=== PATIENT | female | born 1930 | race African-American/Black ===

== ENCOUNTER 2018-01-23 09:22 | Emergency (ER) | payer SELFPAY ==
[2018-01-23 09:31] VITALS: BP 181/74; PULSE 90; TEMP 98.7; BMI 38.9
--- NOTE | 2018-01-23 09:50 | PDOC ---
History of Present Illness - General Chief Complaint: Cold Symptoms Stated Complaint: CONGESTION,COUGHING,BACK PAIN Time Seen by Provider: 01/23/18 09:36 History Source: Patient Exam Limitations: No Limitations - History of Present Illness Initial Comments: 01/23/18 09:50 ` Son but mother in for evaluation of cold symptoms, runny nose, and heavy thick cough with yellow phlegm. Recently arrived from [facility] 2 weeks ago, and has gradually become sicker since. Has young children at home with colds as well. Deny fever, deny purulent drainage from nose, denies chest pain palpitations or dizziness. Timing/Duration: reports: getting worse Severity: reports: moderate Modifying Factors: improves with: coughing Associated Symptoms: reports: cough, nasal congestion. denies: wheezing Past History - Travel Traveled outside of the country in the last 30 days: No Close contact w/someone who was outside of country & ill: No - Past Medical History Allergies/Adverse Reactions: Allergies Allergy/AdvReac Type Severity Reaction Status Date / Time No Known Allergies Allergy Verified 01/23/18 09:31 Home Medications: Ambulatory Orders Acetaminophen [Tylenol] 650 mg PO Q6H #30 capsule 01/23/18 COPD: No Diabetes: Yes HTN: Yes - Immunization History Immunization Up to Date: Yes - Suicide/Smoking/Psychosocial Hx Smoking History: Never smoked Hx Alcohol Use: No Drug/Substance Use Hx: No Substance Use Type: None Review of Systems - Review of Systems Able to Perform ROS?: Yes Is the patient limited Romanian proficient: Yes Constitutional: Yes: Symptoms Reported, See HPI, Loss of Appetite, Malaise. No : Fever HEENTM: Yes: Nose Congestion Respiratory: Yes: Symptoms reported, See HPI, Cough, Productive cough. No: Wheezing Cardiac (ROS): No: Symptoms Reported, Chest Tightness ABD/GI: No: Symptoms Reported : No: Symptoms Reported Musculoskeletal: Yes: See HPI. No: Symptoms Reported Integumentary: Yes: See HPI. No: Symptoms Reported Neurological: Yes: See HPI. No: Symptoms reported, Headache, Numbness, Paresthesia All Other Systems: Reviewed and Negative *Physical Exam - Vital Signs Last Vital Signs Temp Pulse Resp BP Pulse Ox 98.7 F 90 16 181/74 H 97 01/23/18 09:27 01/23/18 09:27 01/23/18 09:27 01/23/18 09:27 01/23/18 09:27 - Physical Exam General Appearance: Yes: Nourished, Appropriately Dressed, Apparent Distress, Mild Distress HEENT: positive: EOMI, GRIFFIN, Normal ENT Inspection, Pharynx Normal, Pharyngeal Erythema, Rhinorrhea (clear). negative: TMs Normal (medical scar tissue bilateral ears, landmarks barely visualized due to the scarring), Tonsillar Exudate, Tonsillar Erythema Neck: positive: Supple. negative: Tender, Lymphadenopathy (R), Lymphadenopathy (L) Respiratory/Chest: positive: Lungs Clear (but coarse breath sounds ), Normal Breath Sounds. negative: Chest Tender Gastrointestinal/Abdominal: positive: Normal Bowel Sounds, Soft. negative: Tender Musculoskeletal: positive: Normal Inspection Extremity: positive: Normal Inspection, Normal Range of Motion Integumentary: positive: Dry, Warm, Pale Neurologic: positive: inspector line II-XII NML intact, Fully Oriented, Alert, Normal Mood/ Affect, Normal Response, Motor Strength 5/5 Moderate Sedation - Procedure Monitoring Vital Signs: Procedure Monitoring Vital Signs Temperature 98.7 F 01/23/18 09:27 Pulse Rate 90 01/23/18 09:27 Respiratory Rate 16 01/23/18 09:27 Blood Pressure 181/74 H 01/23/18 09:27 O2 Sat by Pulse Oximetry (%) 97 01/23/18 09:27 Progress Note - Progress Note Progress Note: Upper respiratory infection, chest x-ray negative for infiltrates. No evidence of bacterial infection therefore we'll treat conservatively and have follow-up with PMD. *DC/Admit/Observation/Transfer Diagnosis at time of Disposition: Upper respiratory infection, viral - Discharge Dispostion Disposition: HOME Condition at time of disposition: Stable Decision to Admit order: No - Prescriptions Prescriptions: Acetaminophen [Tylenol] 650 mg PO Q6H #30 capsule - Referrals - Patient Instructions Printed Discharge Instructions: DI for Viral Upper Respiratory Infection -- Adult Additional Instructions: Rest, drink lots of fluids: Teas, water, soups, Pedialyte Saltwater gargles Steamy showers/seem to face break up mucus Avoid contact with others until fevers and cough resolved Lots of handwashing and good hygiene Continue [id number] medications for symptomatic relief Tylenol or Motrin for fever and pain Followup with private physician in one to 2 days as needed Return to emergency department for worsened symptoms, fevers, dehydration - Post Discharge Activity
== END 2018-01-23 10:22 | disposition home or self-care (01) ==
LOC: JERFT 09:22
DX: J06.9 Acute upper respiratory infection, unspecified (principal)
CPT/HCPCS: 71046-TC-FY; 99281-25

== ENCOUNTER 2018-06-15 21:13 | Observation (INO) | payer MEDICARE ==
--- NOTE | 2018-06-15 21:14 | PDOC ---
Rapid Medical Evaluation Time Seen by Provider: 06/15/18 21:14 Medical Evaluation: Allergies Allergy/AdvReac Type Severity Reaction Status Date / Time No Known Allergies Allergy Verified 01/23/18 09:31 06/15/18 21:15 I performed a brief in-person evaluation of this patient. Chief complaint: Chest pain, intermittent x 3 days, with left arm cramping. Insomnia. Hx HTN and NIDDM. Pertinent physical exam findings: RRR, S1/S2, no murmurs. Lungs CTAB. I have ordered the following: EKG, CXR, cardiac labs Patient will proceed to the ED for further evaluation. Discharge Disposition - Diagnosis Chest pain - Referrals - Patient Instructions - Post Discharge Activity
[2018-06-15 21:23] VITALS: BMI 37.0
[2018-06-15] MEDS ORDERED: SODIUM CHLORIDE 0.9% 500 ML INFUS.BAG IV ONE (21:39)
--- NOTE | 2018-06-15 21:53 | PDOC ---
History of Present Illness - General Chief Complaint: Chest Pain Stated Complaint: CHEST PAIN Time Seen by Provider: 06/15/18 21:14 - History of Present Illness Initial Comments: 06/15/18 21:51 88 yo F with h/o HTN, DM, who p/w chest pain. Patient from [facility], not Mexican speaking. Per patient son at bedside he reports mother complaining of retrosternal discomfort, exertional, non pleuritic, chest pain for two days, present at rest. Pain radiates to left arm. Denies h/o similiar symptoms. No identifiable alleviators. Also endorses SOB while supine and talking yesterday. Denies recent travel, or chest trauma. Patient denies COSME, vision change, palpitations, cough, wheezing, orthopena, PND , leg swelling/pain, N/V, F,C, urinary complaints, hematuria, BPR, abdominal pain, diarrhea, constipation, lightheadedness, weakness, sensory changes. PMHx: as noted above. Denies h/o ACS/AL, stent placement, CABG, stress testing. Denies h/o PE/DVT. ROS: as noted SHx: Denies Etoh, IVDA, tobacco use. Allergies: NKDA Past History - Past Medical History Allergies/Adverse Reactions: Allergies Allergy/AdvReac Type Severity Reaction Status Date / Time No Known Allergies Allergy Verified 01/23/18 09:31 Home Medications: Ambulatory Orders Acetaminophen [Tylenol] 650 mg PO Q6H #30 capsule 01/23/18 COPD: No Diabetes: Yes HTN: Yes - Immunization History Immunization Up to Date: Yes - Suicide/Smoking/Psychosocial Hx Smoking History: Unknown if ever smoked Hx Alcohol Use: No Drug/Substance Use Hx: No Substance Use Type: None Review of Systems - Review of Systems Comments:: 06/15/18 21:51 GENERAL/CONSTITUTIONAL: No fever or chills. No weakness. HEAD, EYES, EARS, NOSE AND THROAT: No change in vision. No ear pain or discharge. No sore throat. CARDIOVASCULAR: + chest pain and shortness of breath RESPIRATORY: No cough, wheezing, or hemoptysis. GASTROINTESTINAL: No nausea, vomiting, diarrhea or constipation. GENITOURINARY: No dysuria, frequency, or change in urination. MUSCULOSKELETAL: No joint or muscle swelling or pain. No neck or back pain. SKIN: No rash NEUROLOGIC: No headache, vertigo, loss of consciousness, or change in strength/ sensation. ENDOCRINE: No increased thirst. No abnormal weight change HEMATOLOGIC/LYMPHATIC: No anemia, easy bleeding, or history of blood clots. ALLERGIC/IMMUNOLOGIC: No hives or skin allergy. *Physical Exam - Vital Signs Last Vital Signs Temp Pulse Resp BP Pulse Ox 98.2 F 94 H 20 127/85 96 06/15/18 21:16 06/15/18 21:16 06/15/18 21:16 06/15/18 21:16 06/15/18 21:16 - Physical Exam Comments: 06/15/18 21:51 GENERAL: Awake, alert, and fully oriented, in no acute distress HEAD: No signs of trauma, normocephalic, atraumatic EYES: PERRLA, EOMI, sclera anicteric, conjunctiva clear ENT: Hearing grossly normal, nares patent, oropharynx clear without exudates. Moist mucosa NECK: Normal ROM, supple, no lymphadenopathy, JVD, or masses LUNGS: No distress, speaks full sentences, clear to auscultation bilaterally HEART: Regular rate and rhythm, normal S1 and S2, no murmurs, rubs or gallops, peripheral pulses normal and equal bilaterally. ABDOMEN: Soft, nontender, normoactive bowel sounds. No guarding, no rebound. No masses EXTREMITIES : Normal inspection, Normal range of motion, no edema. No clubbing or cyanosis. NEUROLOGICAL: Cranial nerves II through XII grossly intact. Normal speech, normal gait, no focal sensorimotor deficits SKIN: Warm, Dry, normal turgor, no rashes or lesions noted Heart Score/ECG Review - History History: Moderately suspicious - Electrocardiogram EKG: Non specific repolarization disturbance - Age Age: >/= 65 - Risk Factors Risk Factors Heart Score: Yes Hx Hypercholesterolemia, Yes Hx Hypertension, Yes Hx Diabetes, Yes Positive family hx of cardiac disease, Yes Hx Obesity Based on the list above the patient has:: >/=3 risk factors or Hx atherosclerotic disease - Troponin Troponin: </= normal limit - Score Heart Score - Total: 6 ED Treatment Course - LABORATORY CBC & Chemistry Diagram: 06/15/18 21:53 06/15/18 21:53 Medical Decision Making - Medical Decision Making 06/15/18 21:52 88 yo F with h/o HTN, DM, who p/w retrosternal discomfort, exertional chest pain for two days, present at rest, and 1 day SOB. Vitals wnl, AF, A&O. Physical exam unremarkable . ACS/AL r/o. R/o PNA. R/o PNA. Will consider pericaridal effusion, pleural effusion. No evidence fluid overload. Low suspicion CHF, asthma, COPD. ED Course: ASA, 500 NS 06/15/18 22:27 EKG: NSR with RBBB, absent FATUMA, STD. Nml interval druation and axis. Q waves I, AvL. Poor R wave progression. 06/15/18 22:56 CBC,CMP: Unremarkable Trop: Neg Admit tele/obs elevated heart score, chest pain with exertion, EKG changes. Heart score 6 06/15/18 23:[address] Leon Admit to tele Dr. Romero *DC/Admit/Observation/Transfer Diagnosis at time of Disposition: Chest pain Qualifiers: Chest pain type: other chest pain Qualified Code(s): R07.89 - Other chest pain - Discharge Dispostion Decision to Admit order: Yes - Referrals - Patient Instructions Printed Discharge Instructions: DI for Atypical Chest Pain - Post Discharge Activity
[2018-06-15 22:04] LABS: BASO % 0.6 % (0-2.0); HEMOGLOBIN 12.9 GM/dL (10.7-15.3); LYMPH % 45.8 % (8-40); MCHC 32.3 g/dl (32.0-36.0); MEAN CELL VOLUME 83.7 fl (80-96); MEAN PLT VOLUME 7.7 fl (7.5-11.1); MONO % 12.4 % (3.8-10.2); NEUT % 39.2 % (42.8-82.8); PLATELET COUNT 257 K/MM3 (134-434); RBC 4.78 M/mm3 (3.60-5.2); RDW 13.9 % (11.6-15.6)
[2018-06-15 22:19] LABS: INR 0.95 (0.83-1.09); PROTHROMBIN TIME (PATIENT) 11.2 SEC (9.7-13.0)
[2018-06-15] MEDS ORDERED: ASPIRIN 81 MG CHEWABLE TABLETS PO ONE (22:32)
[2018-06-15 22:36] LABS: N-TERMINAL BNP < 5.0 pg/ml (5-450)
[2018-06-15 22:41] LABS: ALBUMIN 3.7 g/dl (3.4-5.0); ALK PHOS 96 U/L (45-117); ANION GAP 11 MMOL/L (8-16); BLOOD UREA NITROGEN 17 mg/dL (7-18); CALCIUM 9.2 mg/dL (8.5-10.1); CHLORIDE 98 mmol/L (98-107); CO2 25 mmol/L (21-32); CREATININE 1.3 mg/dL (0.55-1.3); GLUCOSE,RANDOM 237 mg/dL (74-106); POTASSIUM 4.3 mmol/L (3.5-5.1); SGOT/AST 20 U/L (15-37); SGPT/ALT 22 U/L (13-61); SODIUM 134 mmol/L (136-145)
[2018-06-15] MEDS ORDERED: ASPIRIN 81 MG CHEWABLE TABLETS ONE (23:42)
--- NOTE | 2018-06-15 23:47 | HP ---
CHIEF COMPLAINT: New onset fatigue, dyspnea with exertion PCP: None HISTORY OF PRESENT ILLNESS: History obtained with help of son Ranjith Redding at bedside. Patient is an 88 year old female with history of hypertension, diabetes mellitus , presents with complaint of new onset fatigue. Patient endorses dyspnea on exertion which is new to her for past three days, without inciting event. She admits palpitations and occasional chest tightness associated with her dyspnea. Further, she endorses feeling more tired with exertional activities. Admits her symptoms are palliated with rest. At baseline, patient ambulates with a cane approx. one quarter mile limited by hills and cold weather. She denies cardiac history, and has never seen a rda. Patient denies subjective fevers, chills, abdominal pain, nausea, vomiting, diarrhea, dysuria, hematuria, melena, hematochezia. ER course was notable for: (1) EKG normal sinus rhythm with RBBB (2) Trop 0.02 (3) Recent Travel: Recently immigrated [facility] from [facility] PAST MEDICAL HISTORY: hypertension, diabetes mellitus PAST SURGICAL HISTORY: denies Social History: Smoking: denies Alcohol: denies Drugs: denies Ambulates with waker at baseline Family History: Unable to provide Allergies: Patient is unaware of any food, medication allergies. No Known Allergies Allergy (Verified 01/23/18 09:31) HOME MEDICATIONS: Home Medications Medication Instructions Recorded Acetaminophen [Tylenol] 650 mg PO Q6H #30 capsule 01/23/18 REVIEW OF SYSTEMS CONSTITUTIONAL: Admits: fatigue, malaise. Absent: fever, chills, diaphoresis. HEENT: Absent: rhinorrhea, nasal congestion, throat pain, throat swelling, difficulty swallowing, mouth swelling, ear pain, eye pain, visual changes CARDIOVASCULAR: Admits: chest tightness, palpitations. Absent: chest pain, syncope, irregular heart rate, lightheadedness, peripheral edema RESPIRATORY: Admits: dyspnea with exertion. Absent: cough, orthopnea, wheezing, stridor, hemoptysis GASTROINTESTINAL: Absent: abdominal pain, abdominal distension, nausea, vomiting, diarrhea, constipation, melena, hematochezia GENITOURINARY: Absent: dysuria, frequency, urgency, hesitancy, hematuria, flank pain, genital pain MUSCULOSKELETAL: Absent: myalgia, arthralgia, joint swelling, back pain, neck pain SKIN: Absent: rash, itching, pallor HEMATOLOGIC/IMMUNOLOGIC: Absent: easy bleeding, easy bruising, lymphadenopathy, frequent infections ENDOCRINE: Absent: unexplained weight gain, unexplained weight loss, heat intolerance, cold intolerance NEUROLOGIC: Absent: headache, focal weakness or paresthesias, dizziness, unsteady gait, seizure, mental status changes, bladder or bowel incontinence PSYCHIATRIC: Absent: anxiety, depression, suicidal or homicidal ideation, hallucinations. PHYSICAL EXAMINATION Vital Signs - 24 hr 06/15/18 21:16 Temperature 98.2 F Pulse Rate 94 H Respiratory 20 Rate Blood Pressure 127/85 O2 Sat by Pulse 96 Oximetry (%) GENERAL: The patient is awake, alert, and fully oriented, in no acute distress. HEAD: Normocephalic, atraumatic. EYES: PERRL, extraocular movements intact, sclera anicteric, conjunctiva clear. ENT: Oropharynx clear, without erythema or exudates. Moist mucous membranes. NECK: Trachea midline, full range of motion. Supple without lymphadenopathy. LUNGS: Breath sounds equal, clear to auscultation bilaterally, no wheezes, no crackles. No accessory muscle use. HEART: Regular rate and rhythm, S1, S2 without murmur, rub or gallop. ABDOMEN: Soft, nondistended, nontender to light and deep palpation x4 quadrants , no rebound tenderness, no guarding. Normoactive bowel sounds x4 quadrants. no hepatosplenomegaly, no masses. EXTREMITIES: 2+ radial, dorsalis pedis pulses bilaterally. Warm, well-perfused. No lower extremity edema bilaterally. NEUROLOGICAL: Cranial nerves II through XII grossly intact. Normal speech. No gross focal deficits. PSYCH: Normal mood, normal affect upon my encounter. SKIN: Warm, dry. Laboratory Results - last 24 hr 06/15/18 06/15/18 06/15/18 21:53 21:53 21:53 WBC 7.0 RBC 4.78 Hgb 12.9 Hct 40.0 MCV 83.7 MCH 27.0 MCHC 32.3 RDW 13.9 Plt Count 257 MPV 7.7 Absolute Neuts (auto) 2.7 Neutrophils % 39.2 L Lymphocytes % 45.8 H Monocytes % 12.4 H Eosinophils % 2.0 Basophils % 0.6 Nucleated RBC % 0 PT with INR 11.20 INR 0.95 Sodium 134 L Potassium 4.3 Chloride 98 Carbon Dioxide 25 Anion Gap 11 BUN 17 Creatinine 1.3 Creat Clearance w eGFR 38.84 Random Glucose 237 H Calcium 9.2 Total Bilirubin 1.0 AST 20 ALT 22 Alkaline Phosphatase 96 Creatine Kinase Troponin I B-Natriuretic Peptide Total Protein 8.0 Albumin 3.7 06/15/18 21:53 WBC RBC Hgb Hct MCV MCH MCHC RDW Plt Count MPV Absolute Neuts (auto) Neutrophils % Lymphocytes % Monocytes % Eosinophils % Basophils % Nucleated RBC % PT with INR INR Sodium Potassium Chloride Carbon Dioxide Anion Gap BUN Creatinine Creat Clearance w eGFR Random Glucose Calcium Total Bilirubin AST ALT Alkaline Phosphatase Creatine Kinase 126 Troponin I < 0.02 B-Natriuretic Peptide < 5.0 L Total Protein Albumin ASSESSMENT/PLAN: Patient is an 88 year old female with history of hypertension, diabetes mellitus , presents with complaint of chest pain Chest tightness with palpitations, fatigue -Unclear etiology. Patient denies cardiac history, however EKG shows RBBB. Will rule out acute cardiac syndrome -Chest radiograph shows no acute infiltrates upon my reading -Troponin 0.02. Will follow -Follow cardiac ECHO -Follow D- dimer -Follow TSH -Aspirin 81mg PO daily -Telemetry monitoring -Cardiology consult (Dr. Rainey) -Physical therapy evaluation Hypertension -Continue Hydrochlorothiazide 25mg PO daily -Continue Losartan 25mg PO daily -Monitor vital signs closely Diabetes mellitus -Holding home Metformin -Insulin sliding scale ACHS -Fingerstick blood glucose ACHS -Follow HbA1c FEN -No IV fluids indicated. Encourage judicious oral hydration -Follow CMP -Diabetic, sodium controlled diet. Prophylaxis -Heparin 5000u subq TID Disposition -Telemetry observation Visit type - Emergency Visit Emergency Visit: Yes ED Registration Date: 06/15/18 Care time: The patient presented to the Emergency Department on the above date and was hospitalized for further evaluation of their emergent condition. - New Patient This patient is new to me today: Yes Date on this admission: 06/16/18 - Critical Care Critical Care patient: No
--- NOTE | 2018-06-16 00:44 | PN ---
Teaching Attending Note Name of Resident: Hernandez Patel ATTENDING PHYSICIAN STATEMENT I saw and evaluated the patient. I reviewed the resident's note and discussed the case with the resident. I agree with the resident's findings and plan as documented. SUBJECTIVE: Seen and examined; please refer to resident note for further historical information. Briefly, this is a 88 y/o female presenting to the ER with a CC of chest tightness/easy fatigue/palpitations. She is not complaining of alejandra chest pain, persay. No syncope/presyncope. She doesn't have any previous cardiac history and does not see a men's basketball coach. No pulmonary history. She is a nondrinker/nonsmoker. She is on HCTZ/ARB for HTN and MTF for DM. She is hemodynamically stable and afebrile. No frankly concerning ST-T changes on EKG. Initial cardiac enzymes done and negative. She will be placed on observation on the medicine service. 10 sys ROS done and negative aside from HPI PMH, PSH, FH, SH reviewed Home Medications Medication Instructions Recorded Hydrochlorothiazide [Hctz -] 25 mg PO DAILY 06/16/18 Losartan Potassium [Cozaar -] 25 mg PO DAILY 06/16/18 Metformin HCl [Glucophage] 1,000 mg PO BID 06/16/18 OBJECTIVE: VS, labs, imaging reviewed NAD, AAO, resting comfortably in bed NC AT EOMI PERRLA RRR s1/2 no mgr Lungs CTAB, w/ sym exp NT ND +BS CN2-12 wnl, no fnd Normal mood, appropriate behavior ASSESSMENT AND PLAN: Patient presents for fatigubility/palpitations and vague chest discomfort from home; she is stable and has never seen a men's basketball coach 1) Chest discomfort/easy fatigue/palpitations -Placing on telemetry, trending troponins, monitor for further sx -Checking echo, CV consult -Checking TSH, FLP, A1c -Ceramic Saw Tender on risk factor reduction prior to discharge. 2) HTN -Continue HCTZ and ARB; monitor renal function. Titrate dosage if needed 3) DM -Check A1c; hold PO antihyperglycemic and SSI when inpatient 4) Obesity -Ceramic Saw Tender prior to discharge FENA -PO -PRN replete -CV -As tolerated Full Code
[2018-06-16 06:30] LABS: HEMATOCRIT 35.6 % (32.4-45.2); HEMOGLOBIN 11.6 GM/dL (10.7-15.3); MCH 26.7 pg (25.7-33.7); MCHC 32.7 g/dl (32.0-36.0); MEAN CELL VOLUME 81.8 fl (80-96); MEAN PLT VOLUME 7.8 fl (7.5-11.1); PLATELET COUNT 237 K/MM3 (134-434); RBC 4.35 M/mm3 (3.60-5.2); RDW 14.2 % (11.6-15.6); WHITE BLOOD COUNT 5.3 K/mm3 (4.0-10.0)
[2018-06-16] MEDS: INSULIN SLIDING SCALE (NOVOLOG) 1 VIAL SQ SCH ×4 (06:30→21:30)
[2018-06-16] MEDS: HEPARIN NA (PORCINE) 5,000 UNITS/ML 1ML VIAL SQ SCH ×3 (06:30→21:31)
[2018-06-16 07:01] LABS: ALBUMIN 3.1 g/dl (3.4-5.0); ALK PHOS 75 U/L (45-117); ANION GAP 8 MMOL/L (8-16); BLOOD UREA NITROGEN 16 mg/dL (7-18); CALCIUM 8.7 mg/dL (8.5-10.1); CHLORIDE 101 mmol/L (98-107); CO2 27 mmol/L (21-32); CREATININE 0.8 mg/dL (0.55-1.3); GLUCOSE,RANDOM 145 mg/dL (74-106); POTASSIUM 3.5 mmol/L (3.5-5.1); SGOT/AST 14 U/L (15-37); SGPT/ALT 18 U/L (13-61); SODIUM 136 mmol/L (136-145); TOT PROT 6.8 g/dl (6.4-8.2)
[2018-06-16] MEDS: HYDROCHLOROTHIAZIDE 25 MG TABLET (FP) PO SCH (09:41)
[2018-06-16] MEDS: ASPIRIN 81 MG CHEWABLE TABLETS PO SCH (09:41)
[2018-06-16] MEDS: LOSARTAN POTASSIUM 25 MG TABLET PO SCH (09:41)
[2018-06-16] MEDS ORDERED: HYDROCHLOROTHIAZIDE 50 MG TABLET PO SCH (10:00)
--- NOTE | 2018-06-16 12:54 | CON.CARD ---
Consult Consult Specialty:: Cardiology Referred by:: Medicine Reason for Consultation:: chest pain - History of Present Illness Chief Complaint: fatigue, chest pain, dyspnea History of Present Illness: 88F h/o HTN, DM p/w fatigue, dyspnea on exertion. Sully short of breath for 3 days, palps, also chest tightness and fatigue with exertion, better at rest. Currently comfortable, denies complaints. No prior cardiac hx or workup - Alcohol/Substance Use Hx Alcohol Use: No - Smoking History Smoking history: Unknown if ever smoked Home Medications - Allergies Allergies/Adverse Reactions: Allergies Allergy/AdvReac Type Severity Reaction Status Date / Time No Known Allergies Allergy Verified 01/23/18 09:31 - Home Medications Home Medications: Ambulatory Orders Hydrochlorothiazide [Hctz -] 25 mg PO DAILY 06/16/18 Losartan Potassium [Cozaar -] 25 mg PO DAILY 06/16/18 Metformin HCl [Glucophage] 1,000 mg PO BID 06/16/18 Family Disease History - Family Disease History Family History: Unremarkable Review of Systems - Review of Systems Constitutional: reports: No Symptoms Eyes: reports: No Symptoms HENT: reports: No Symptoms Neck: reports: No Symptoms Cardiovascular: reports: No Symptoms Respiratory: reports: No Symptoms Gastrointestinal: reports: No Symptoms Genitourinary: reports: No Symptoms Musculoskeletal: reports: No Symptoms Integumentary: reports: No Symptoms Neurological: reports: No Symptoms Endocrine: reports: No Symptoms Hematology/Lymphatic: reports: No Symptoms Psychiatric: reports: No Symptoms Vital Signs: Vital Signs Temperature 97.7 F 06/16/18 09:00 Pulse Rate 82 06/16/18 09:00 Respiratory Rate 18 06/16/18 09:00 Blood Pressure 126/83 06/16/18 09:00 O2 Sat by Pulse Oximetry (%) 97 06/16/18 09:00 Constitutional: Yes: Well Nourished, No Distress, Calm Eyes: Yes: Conjunctiva Clear, EOM Intact HENT: Yes: Atraumatic, Normocephalic Neck: Yes: Supple, Trachea Midline Respiratory: Yes: Regular, CTA Bilaterally Gastrointestinal: Yes: Normal Bowel Sounds, Soft Cardiovascular: Yes: Regular Rate and Rhythm JVD: No Carotid Bruit: No PMI: Non-Displaced Heart Sounds: Yes: S1, S2 Murmur: No: Systolic Murmur Musculoskeletal: No: Back Pain Extremities: No: Cold Edema: No Peripheral Pulses WNL: Yes Peripheral Pulses: 2+ Left Doralis Pedis, 2+ Right Dorsalis Pedis Integumentary: No: Jaundice Neurological: Yes: Alert, Oriented Psychiatric: No: Agitated - Other Data Labs, Other Data: CBC, BMP 06/16/18 05:30 06/16/18 06:00 INR, PTT INR 0.95 (0.83-1.09) 06/15/18 21:53 Troponin, BNP 06/15/18 06/16/18 21:53 06:00 Troponin I < 0.02 < 0.02 B-Natriuretic Peptide < 5.0 L Troponin, BNP 06/15/18 06/16/18 21:53 06:00 Troponin I < 0.02 < 0.02 B-Natriuretic Peptide < 5.0 L Assessment/Plan EKG: sinus, RBBB, no ischemic changes CXR: atelectasis/scarring R base tele: sinus chest pain, palps, dyspnea, fatigue - trop neg x 2, EKG RBBB with no ischemic changes, BNP neg - unlikely ACS - echo pending - recommend stress test as well given age, risk factors HTN - continue home meds HCTZ, losartan DM - manage per primary
--- NOTE | 2018-06-16 13:23 | HOSP ---
Subjective - Review of Symptoms Subjective: not having any symptoms at this time. been having intermittent CP with SOB on exertion for the past few weeks. has not have cardiac workup in the past. denies CP, SOB, fever, chills, N/V/C?D denies smoking no significant cardiac hx Current Medications Generic Name Dose Route Start Last Admin Trade Name Lexii PRN Reason Stop Dose Admin Aspirin 81 mg 06/16/18 10:00 06/16/18 09:41 Asa - PO 81 mg DAILY PAVEL Administration Heparin Sodium (Porcine) 5,000 unit 06/16/18 06:00 06/16/18 13:05 Heparin - SQ 5,000 unit TID P[facility]EL Administration Hydrochlorothiazide 25 mg 06/16/18 10:00 06/16/18 09:41 Hctz - PO 25 mg DAILY P[facility]EL Administration Insulin Aspart 1 vial 06/16/18 07:00 06/16/18 11:50 Novolog Vial Sliding Scale - SQ Not Given ACHS P[facility]EL Protocol Losartan Potassium 25 mg 06/16/18 10:00 06/16/18 09:41 Cozaar - PO 25 mg DAILY PAVEL Administration Last Vital Signs Temp Pulse Resp BP Pulse Ox 97.7 F 82 18 126/83 97 06/16/18 09:00 06/16/18 09:00 06/16/18 09:00 06/16/18 09:00 06/16/18 09:00 General NAD CV S1 S2 RRR no murmur/rub/gallop Lungs CTA B/L no wheezing/rales/rhonchi CBCD WBC 5.3 K/mm3 (4.0-10.0) 06/16/18 05:30 RBC 4.35 M/mm3 (3.60-5.2) 06/16/18 05:30 Hgb 11.6 GM/dL (10.7-15.3) 06/16/18 05:30 Hct 35.6 % (32.4-45.2) 06/16/18 05:30 MCV 81.8 fl (80-96) 06/16/18 05:30 MCHC 32.7 g/dl (32.0-36.0) 06/16/18 05:30 RDW 14.2 % (11.6-15.6) 06/16/18 05:30 Plt Count 237 K/MM3 (134-434) 06/16/18 05:30 MPV 7.8 fl (7.5-11.1) 06/16/18 05:30 CMP Sodium 136 mmol/L (136-145) 06/16/18 06:00 Potassium 3.5 mmol/L (3.5-5.1) 06/16/18 06:00 Chloride 101 mmol/L (98-107) 06/16/18 06:00 Carbon Dioxide 27 mmol/L (21-32) 06/16/18 06:00 Anion Gap 8 MMOL/L (8-16) 06/16/18 06:00 BUN 16 mg/dL (7-18) 06/16/18 06:00 Creatinine 0.8 mg/dL (0.55-1.3) 06/16/18 06:00 Creat Clearance w eGFR 68.01 (>60) 06/16/18 06:00 Random Glucose 145 mg/dL (74-106) H 06/16/18 06:00 Calcium 8.7 mg/dL (8.5-10.1) 06/16/18 06:00 Total Bilirubin 1.0 mg/dL (0.2-1) 06/16/18 06:00 AST 14 U/L (15-37) L 06/16/18 06:00 ALT 18 U/L (13-61) 06/16/18 06:00 Alkaline Phosphatase 75 U/L (45-117) 06/16/18 06:00 Total Protein 6.8 g/dl (6.4-8.2) 06/16/18 06:00 Albumin 3.1 g/dl (3.4-5.0) L 06/16/18 06:00 CARDIAC ENZYMES Creatine Kinase 126 U/L (26-192) 06/15/18 21:53 Troponin I < 0.02 ng/ml (0.00-0.05) 06/16/18 06:00 A/P 88yo F wtih PMH HTN and DM presenting with CP assoc with SOB and observed for ACS rule out 1. r/o ACS- cardiac enzymes x2. no events on cardiac monitory. would benefit from stress test to be determined by cardio if in vs outpatient. echo pending. cont asa 2. DM- hold oral agents. A1c 8.8. iss and bgm 3. HTN- controlled. cont home medications 4. DVT ppx- hep sq 5. spoke with grandson present at bedside which served as interperter. all questions answered Physical Examination Vital Signs: Vital Signs Temperature 97.7 F 06/16/18 09:00 Pulse Rate 82 06/16/18 09:00 Respiratory Rate 18 06/16/18 09:00 Blood Pressure 126/83 06/16/18 09:00 O2 Sat by Pulse Oximetry (%) 97 06/16/18 09:00 Labs: CBC, BMP 06/16/18 05:30 06/16/18 06:00
--- NOTE | 2018-06-16 14:11 | EKG ---
Test Reason : Blood Pressure : / mmHG Vent. Rate : 089 BPM Atrial Rate : 089 BPM P-R Int : 138 ms QRS Dur : 138 ms QT Int : 406 ms P-R-T Axes : 059 -27 025 degrees QTc Int : 493 ms POOR DATA QUALITY, INTERPRETATION MAY BE ADVERSELY AFFECTED NORMAL SINUS RHYTHM RIGHT BUNDLE BRANCH BLOCK ABNORMAL ECG NO PREVIOUS ECGS AVAILABLE Confirmed by MD GEORGE, LOIDA ([id number]) on 06/16/2018 2:11:25 PM Referred By: Confirmed By:LOIDA VAZQUEZ MD
[2018-06-17] MEDS: HEPARIN NA (PORCINE) 5,000 UNITS/ML 1ML VIAL SQ SCH ×3 (07:08→22:34)
[2018-06-17] MEDS: INSULIN SLIDING SCALE (NOVOLOG) 1 VIAL SQ SCH ×4 (07:08→22:35)
--- NOTE | 2018-06-17 07:19 | PN ---
Physical Exam: SUBJECTIVE: Patient seen and examined. No SOB, no CP, no more palpitations. No leg swelling. Pt feels better this am. OBJECTIVE: Vital Signs Period Temp Pulse Resp BP Sys/Yin Pulse Ox Last 24 Hr 97.7 F-98.9 F 70-99 18-20 111-133/71-85 95-97 Vital Signs Temp 97.7 F 06/17/18 09:06 Pulse 82 06/17/18 09:06 Resp 20 06/17/18 09:06 BP 126/83 06/17/18 09:06 Pulse Ox 95 06/17/18 09:00 Intake & Output 06/16/18 06/17/18 06/17/18 23:59 11:59 23:59 Intake Total 1310 Balance 1310 Weight 96.706 kg Intake: IV 10 s/l 10 Oral 1300 Other: Voiding Method Toilet Toilet # Unmeasured Voids Void 2 1 Weight Measurement Method Standing Scale GENERAL: The patient is awake, alert, and fully oriented, in no acute distress, having breakfast. HEAD: Normal with no signs of trauma. EYES: PERRL, extraocular movements intact, ENT: moist mucous membranes. NECK: supple. LUNGS: Breath sounds equal, clear to auscultation bilaterally, no wheezes, no crackles HEART: Regular rate and rhythm, S1, S2 without murmur, rub or gallop. ABDOMEN: Soft, nontender, nondistended, normoactive bowel sounds, no guarding EXTREMITIES: 2+ pulses, warm, well-perfused, no edema. NEUROLOGICAL: Cranial nerves II through XII grossly intact. Normal speech, gait not observed. PSYCH: Normal mood, normal affect. SKIN: Warm, dry, normal turgor, no rashes or lesions noted Laboratory Results - last 24 hr 06/16/18 06/16/18 06/16/18 06:00 12:13 16:20 Sodium 136 Potassium 3.5 Chloride 101 Carbon Dioxide 27 Anion Gap 8 BUN 16 Creatinine 0.8 Creat Clearance w eGFR 68.01 POC Glucometer 150 Random Glucose 145 H Calcium 8.7 Total Bilirubin 1.0 AST 14 L ALT 18 Alkaline Phosphatase 75 Troponin I < 0.02 Total Protein 6.8 Albumin 3.1 L Influenza A (Rapid) Negative Influenza B (Rapid) Negative 06/16/18 06/16/18 06/17/18 17:00 20:43 06:51 Sodium Potassium Chloride Carbon Dioxide Anion Gap BUN Creatinine Creat Clearance w eGFR POC Glucometer 154 224 169 Random Glucose Calcium Total Bilirubin AST ALT Alkaline Phosphatase Troponin I Total Protein Albumin Influenza A (Rapid) Influenza B (Rapid) Active Medications Generic Name Dose Route Start Last Admin Trade Name Freq PRN Reason Stop Dose Admin Aspirin 81 mg 06/16/18 10:00 06/16/18 09:41 Asa - PO 81 mg DAILY [facility]EL Administration Heparin Sodium (Porcine) 5,000 unit 06/16/18 06:00 06/17/18 07:08 Heparin - SQ 5,000 unit TID [facility] Administration Hydrochlorothiazide 25 mg 06/16/18 10:00 06/16/18 09:41 Hctz - PO 25 mg DAILY [facility]EL Administration Insulin Aspart 1 vial 06/16/18 07:00 06/17/18 07:08 Novolog Vial Sliding Scale - SQ 2 units ACHS P[facility]EL Administration Protocol Losartan Potassium 25 mg 06/16/18 10:00 06/16/18 09:41 Cozaar - PO 25 mg DAILY [facility]EL Administration Ambulatory Orders Hydrochlorothiazide [Hctz -] 25 mg PO DAILY 06/16/18 Losartan Potassium [Cozaar -] 25 mg PO DAILY 06/16/18 Metformin HCl [Glucophage] 1,000 mg PO BID 06/16/18 ASSESSMENT/PLAN: Pt is an 88 yo F with history of HTN, DM, presents with complaint of SOB, palpitations Chest tightness with palpitations, fatigue -Unclear etiology. Patient denies cardiac history, however EKG shows RBBB. Will rule out acute cardiac syndrome -Chest radiograph shows no acute infiltrates upon my reading -Troponin 0.02. x2 -Pending cardiac ECHO -Follow [id number] -Follow TSH-1.28 -Aspirin 81mg PO daily -Telemetry monitoring -Cardiology consult (Dr. Rainey) -Physical therapy evaluation -Pending stress test Hypertension -Continue Hydrochlorothiazide 25mg PO daily -Continue Losartan 25mg PO daily -Monitor vital signs closely Diabetes mellitus -Holding home Metformin -Insulin sliding scale ACHS -Fingerstick blood glucose ACHS -Follow HbA1c FEN -No IV fluids indicated. Encourage judicious oral hydration -Follow CMP -Diabetic, sodium controlled diet. Prophylaxis -Heparin 5000u subq TID Disposition -Telemetry observation Visit type - Emergency Visit Emergency Visit: Yes ED Registration Date: 06/15/18 Care time: The patient presented to the Emergency Department on the above date and was hospitalized for further evaluation of their emergent condition. - New Patient This patient is new to me today: No - Critical Care Critical Care patient: No - Discharge Referral Referred to [facility] No
[2018-06-17] MEDS: ASPIRIN 81 MG CHEWABLE TABLETS PO SCH (09:00)
[2018-06-17] MEDS: LOSARTAN POTASSIUM 25 MG TABLET PO SCH (09:00)
[2018-06-17] MEDS: HYDROCHLOROTHIAZIDE 25 MG TABLET (FP) PO SCH (09:00)
--- NOTE | 2018-06-17 10:55 | PN ---
Teaching Attending Note Name of Resident: Martha More ATTENDING PHYSICIAN STATEMENT I saw and evaluated the patient. I reviewed the resident's note and discussed the case with the resident. I agree with the resident's findings and plan as documented. SUBJECTIVE:asymptomatic. denies CP, SOB, fever, chills, palpitations, OBJECTIVE: Last Vital Signs Temp Pulse Resp BP Pulse Ox 97.7 F 82 20 126/83 95 06/17/18 09:06 06/17/18 09:06 06/17/18 09:06 06/17/18 09:06 06/17/18 09:00 General NAD CV S1 S2 RRR no murmur/rub/gallop Lungs CTA B/L no wheezing/rales/rhonchi ASSESSMENT AND PLAN: 88yo F wtih PMH HTN and DM presenting with CP assoc with SOB and observed for ACS rule out 1. r/o ACS-no recurrent episodes. no events on cardiac monitoring. plan for echo and stress tomorrow. cardio on board. cont asa 2. DM- hold oral agents. A1c 8.8. iss and bgm 3. HTN- controlled. cont home medications 4. DVT ppx- hep sq 5. d/c planning for tomorrow pending results of cardiac testing
--- NOTE | 2018-06-17 11:04 | PN ---
Progress Note (short form) - Note Progress Note: s: no chest pain, palps, dizziness, edema Current Medications Aspirin (Asa -) 81 mg PO DAILY [facility] Last Admin: 06/17/18 09:00 Dose: 81 mg Heparin Sodium (Porcine) (Heparin -) 5,000 unit SQ TID [facility] Last Admin: 06/17/18 07:08 Dose: 5,000 unit Hydrochlorothiazide (Hctz -) 25 mg PO DAILY [facility] Last Admin: 06/17/18 09:00 Dose: 25 mg Insulin Aspart (Novolog Vial Sliding Scale -) 1 vial SQ ACHS [facility]; Protocol Last Admin: 06/17/18 07:08 Dose: 2 units Losartan Potassium (Cozaar -) 25 mg PO DAILY [facility] Last Admin: 06/17/18 09:00 Dose: 25 mg Vital Signs Period Temp Pulse Resp BP Sys/Yin Pulse Ox Last 24 Hr 97.7 F-98.9 F 70-99 20-20 111-133/71-85 95-97 Constitutional: Yes: Well Nourished, No Distress, Calm Eyes: Yes: Conjunctiva Clear, EOM Intact HENT: Yes: Atraumatic, Normocephalic Neck: Yes: Supple, Trachea Midline Respiratory: Yes: Regular, CTA Bilaterally Gastrointestinal: Yes: Normal Bowel Sounds, Soft Cardiovascular: Yes: Regular Rate and Rhythm JVD: No Carotid Bruit: No PMI: Non-Displaced Heart Sounds: Yes: S1, S2 Murmur: No: Systolic Murmur Musculoskeletal: No: Back Pain Extremities: No: Cold Edema: No Peripheral Pulses WNL: Yes Peripheral Pulses: 2+ Left Doralis Pedis, 2+ Right Dorsalis Pedis Integumentary: No: Jaundice Neurological: Yes: Alert, Oriented Psychiatric: No: Agitated Assessment/Plan EKG: sinus, RBBB, no ischemic changes CXR: atelectasis/scarring R base tele: sinus chest pain, palps, dyspnea, fatigue - trop neg x 2, EKG RBBB with no ischemic changes, BNP neg - unlikely ACS - echo pending - recommend stress test as well given age, risk factors HTN - continue home meds HCTZ, losartan DM - manage per primary
[2018-06-18] MEDS: INSULIN SLIDING SCALE (NOVOLOG) 1 VIAL SQ SCH ×3 (06:13→17:04)
[2018-06-18 06:40] LABS: EOS % 2.7 % (0-4.5); HEMATOCRIT 38.6 % (32.4-45.2); HEMOGLOBIN 12.9 GM/dL (10.7-15.3); LYMPH % 52.7 % (8-40); MCH 27.3 pg (25.7-33.7); MCHC 33.4 g/dl (32.0-36.0); MEAN CELL VOLUME 81.5 fl (80-96); MEAN PLT VOLUME 7.9 fl (7.5-11.1); MONO % 12.9 % (3.8-10.2); NEUT % 30.7 % (42.8-82.8); PLATELET COUNT 252 K/MM3 (134-434); RBC 4.73 M/mm3 (3.60-5.2); WHITE BLOOD COUNT 5.6 K/mm3 (4.0-10.0)
[2018-06-18] MEDS: HEPARIN NA (PORCINE) 5,000 UNITS/ML 1ML VIAL SQ SCH ×2 (06:43→14:00)
[2018-06-18 07:04] LABS: ALBUMIN 3.4 g/dl (3.4-5.0); ALK PHOS 98 U/L (45-117); ANION GAP 8 MMOL/L (8-16); BILIRUBIN,TOTAL 1.1 mg/dL (0.2-1); BLOOD UREA NITROGEN 11 mg/dL (7-18); CALCIUM 9.7 mg/dL (8.5-10.1); CHLORIDE 98 mmol/L (98-107); CO2 30 mmol/L (21-32); CREATININE 0.9 mg/dL (0.55-1.3); GLUCOSE,RANDOM 166 mg/dL (74-106); MAGNESIUM 1.9 mg/dL (1.8-2.4); PHOSPHOROUS 3.9 mg/dL (2.5-4.9); POTASSIUM 3.8 mmol/L (3.5-5.1); SGOT/AST 17 U/L (15-37); SGPT/ALT 23 U/L (13-61); SODIUM 136 mmol/L (136-145); TOT PROT 7.8 g/dl (6.4-8.2)
[2018-06-18] MEDS: LOSARTAN POTASSIUM 25 MG TABLET PO SCH (08:36)
[2018-06-18] MEDS: HYDROCHLOROTHIAZIDE 25 MG TABLET (FP) PO SCH (08:37)
[2018-06-18] MEDS ORDERED: REGADENOSON 0.4 MG/5 ML PRE-FILLED SYRINGE IVPUSH ONE ×2 (09:47→10:00)
--- NOTE | 2018-06-18 11:02 | PN ---
Progress Note, Physician Chief Complaint: Seen and examined in Cardiology dept with son at bedside Denies CP or SOB. Denies dizziness. - Current Medication List Current Medications: Active Medications Aspirin (Asa -) 81 mg PO DAILY [facility] Last Admin: 06/17/18 09:00 Dose: 81 mg Heparin Sodium (Porcine) (Heparin -) 5,000 unit SQ TID [facility] Last Admin: 06/18/18 06:43 Dose: 5,000 unit Hydrochlorothiazide (Hctz -) 25 mg PO DAILY [facility] Last Admin: 06/18/18 08:37 Dose: 25 mg Insulin Aspart (Novolog Vial Sliding Scale -) 1 vial SQ ACHS [facility]; Protocol Last Admin: 06/18/18 06:13 Dose: Not Given Losartan Potassium (Cozaar -) 25 mg PO DAILY [facility] Last Admin: 06/18/18 08:36 Dose: 25 mg - Objective Vital Signs: Vital Signs Temperature 98.1 F 06/18/18 08:00 Pulse Rate 78 06/18/18 08:00 Respiratory Rate 20 06/18/18 08:00 Blood Pressure 132/79 06/18/18 08:00 O2 Sat by Pulse Oximetry (%) 98 06/17/18 21:00 Constitutional: Yes: No Distress Cardiovascular: Yes: Regular Rate and Rhythm Respiratory: Yes: CTA Bilaterally (no wheezing or rales.) Gastrointestinal: Yes: Soft (Nontender) Edema: Yes Edema: LLE: Trace, RLE: Trace Neurological: Yes: Alert ...Motor Strength: WNL Labs: CBC, BMP 06/18/18 05:30 06/18/18 05:30 INR, PTT INR 0.95 (0.83-1.09) 06/15/18 21:53 Laboratory Tests 06/15/18 06/16/18 06/18/18 21:53 06:00 05:30 WBC 5.6 Hgb 12.9 Hct 38.6 Plt Count 252 Sodium Potassium Creatinine Troponin I < 0.02 < 0.02 06/18/18 05:30 WBC Hgb Hct Plt Count Sodium 136 Potassium 3.8 Creatinine 0.9 Troponin I - ....Imaging EKG: Image Reviewed Assessment/Plan IMP/PLAN: 1. Chest pain, palps, dyspnea, fatigue: - trop neg x 2, EKG RBBB with no ischemic changes, BNP neg - unlikely ACS - echo pending - recommend stress test as well given age, risk factors -D-dimer elevated. Low clinical suspicion for PE (normal O2 saturation, no tachycardia). Further w/u as per PMD. 2. HTN: - continue home meds HCTZ, losartan. Currently well controlled. 3. DM: - manage per primary
--- NOTE | 2018-06-18 12:21 | ECHO ---
Name: PATRICA SMITH Exam:Adult Echocardiogram Study Date: 06/18/2018 07:44 AM Age: 88 yrs Reason For Study: chest pain, dyspnea with exertion Height: 64 in Weight: 216 lb BSA: 2.0 m2 MMode/2D Measurements & Calculations IVSd: 0.98 cm Ao root diam: 4.1 cm LVIDd: 4.4 cm LA dimension: 3.1 cm LVIDs: 2.5 cm ACS: 1.9 cm LVPWd: 0.89 cm IVSs: 1.1 cm LVPWs: 0.93 cm EDV(Teich): 90.0 ml ESV(Teich): 22.9 ml Doppler Measurements & Calculations MV E max kaylin: 41.0 cm/sec Ao V2 max: 142.5 cm/sec MV A max kaylin: 97.7 cm/sec Ao max P.1 mmHg MV E/A: 0.42 Ao V2 mean: 90.4 cm/sec Ao mean P.9 mmHg Ao V2 VTI: 24.5 cm TR max kaylin: 249.8 cm/sec PI end-d kyalin: 121.5 cm/sec TR max P.0 mmHg Med Peak E' Kaylin: 4.6 cm/sec Med E/e': 8.9 Lat Peak E' Kaylin: 8.4 cm/sec Lat E/e': 4.9 Procedure The study was technically limited with all images being suboptimal in quality. Left Ventricle The left ventricle is grossly normal size. Ejection Fraction = 55-60%. Left ventricular systolic func tion is grossly normal. Grade I diastolic dysfunction, (abnormal relaxation pattern). Left Ventricular Fillin g pattern is normal for age. Regional wall motion abnormalities cannot be excluded due to limited visualization . Right Ventricle The right ventricle is grossly normal size. A moderator band is seen in the right ventricle. The righ t ventricular systolic function is grossly normal. Atria Normal left and right atrial size and function. Mitral Valve There is mild mitral annular calcification. There is trace mitral regurgitation. Tricuspid Valve The tricuspid valve is not well visualized, but is grossly normal. There is trace tricuspid regurgita tion. There was insufficient TR detected to calculate RV systolic pressure. Aortic Valve The aortic valve is trileaflet. The aortic valve opens well. Trace aortic regurgitation. Pulmonic Valve The pulmonic valve is not well visualized. Trace pulmonic valvular regurgitation. Great Vessels Mild aortic root dilatation. Pericardium/Pleura There is no pericardial effusion. Interpretation Summary There is no comparison study available. Mild aortic root dilatation. The left ventricle is grossly normal size. Trace pulmonic valvular regurgitation. The right ventricle is grossly normal size. The right ventricular systolic function is grossly normal. Trace aortic regurgitation. Grade I diastolic dysfunction, (abnormal relaxation pattern). There is trace tricuspid regurgitation. There is trace mitral regurgitation. Left ventricular systolic function is grossly normal. Ejection Fraction = 55-60%. Elio Prabhakar MD 06/18/2018 12:21 PM
[2018-06-18] MEDS: ASPIRIN 81 MG CHEWABLE TABLETS PO SCH (12:42)
[2018-06-18 15:45] VITALS: BP 135/70; PULSE 82; TEMP 98.2
--- NOTE | 2018-06-18 16:10 | PN ---
Teaching Attending Note Name of Resident: Hernandez Patel ATTENDING PHYSICIAN STATEMENT I saw and evaluated the patient. I reviewed the resident's note and discussed the case with the resident. I agree with the resident's findings and plan as documented. SUBJECTIVE: Patient has no complaints. OBJECTIVE: Vital Signs Period Temp Pulse Resp BP Sys/Yin Pulse Ox Last 24 Hr 97.6 F-98.2 F 68-82 18-20 116-135/54-79 98-98 HEART: S1S2, RRR LUNGS: Clear ABDOMEN: Obese, soft, non-tender, non-distended, normal BS EXTREMITIES: Trace edema Laboratory Results - last 24 hr 06/17/18 06/17/18 06/18/18 16:26 22:07 05:30 WBC 5.6 RBC 4.73 Hgb 12.9 Hct 38.6 MCV 81.5 MCH 27.3 MCHC 33.4 RDW 14.0 Plt Count 252 MPV 7.9 Absolute Neuts (auto) 1.7 Neutrophils % 30.7 L D Lymphocytes % 52.7 H Monocytes % 12.9 H Eosinophils % 2.7 Basophils % 1.0 Nucleated RBC % 0 Sodium Potassium Chloride Carbon Dioxide Anion Gap BUN Creatinine Creat Clearance w eGFR POC Glucometer 182 197 Random Glucose Calcium Phosphorus Magnesium Total Bilirubin AST ALT Alkaline Phosphatase Total Protein Albumin 06/18/18 06/18/18 06/18/18 05:30 05:44 11:59 WBC RBC Hgb Hct MCV MCH MCHC RDW Plt Count MPV Absolute Neuts (auto) Neutrophils % Lymphocytes % Monocytes % Eosinophils % Basophils % Nucleated RBC % Sodium 136 Potassium 3.8 Chloride 98 Carbon Dioxide 30 Anion Gap 8 BUN 11 Creatinine 0.9 Creat Clearance w eGFR 59.37 POC Glucometer 168 198 Random Glucose 166 H Calcium 9.7 Phosphorus 3.9 Magnesium 1.9 Total Bilirubin 1.1 H AST 17 ALT 23 Alkaline Phosphatase 98 Total Protein 7.8 Albumin 3.4 Current Medications Generic Name Dose Route Start Last Admin Trade Name Freq PRN Reason Stop Dose Admin Aspirin 81 mg 06/16/18 10:00 06/18/18 12:42 Asa - PO 81 mg DAILY [facility] Administration Heparin Sodium (Porcine) 5,000 unit 06/16/18 06:00 06/18/18 06:43 Heparin - SQ 5,000 unit TID [facility] Administration Hydrochlorothiazide 25 mg 06/16/18 10:00 06/18/18 08:37 Hctz - PO 25 mg DAILY [facility] Administration Insulin Aspart 1 vial 06/16/18 07:00 06/18/18 12:07 Novolog Vial Sliding Scale - SQ 2 units ACHS [facility] Administration Protocol Losartan Potassium 25 mg 06/16/18 10:00 06/18/18 08:36 Cozaar - PO 25 mg DAILY [facility] Administration ASSESSMENT AND PLAN: This is an 88 year old woman with a history of HTN, type 2 DM who presented to the ED with CP and SOB. 1. Chest pain - Troponin negative x2 - Echo shows mild aortic root dilatation, normal LV, LVEF 55-60%, grade I diastolic dysfunction, normal RV, trace [place], trace [place], trace [place] - Stress test pending 2. Type 2 DM - Metformin held - Continue Novolog sliding scale 3. HTN - Continue Cozaar, HCTZ
--- NOTE | 2018-06-18 16:37 | DS ---
Physical Exam: SUBJECTIVE: Patient seen and examined at bedside this morning. She denies acute complaints. Endorses resolution of chest discomfort. OBJECTIVE: Vital Signs Period Temp Pulse Resp BP Sys/Yin Pulse Ox Last 24 Hr 97.6 F-98.2 F 68-82 18-20 116-135/54-79 98-98 PHYSICAL EXAM GENERAL: The patient is awake, alert, and fully oriented, in no acute distress. HEAD: Normocephalic, atraumatic. EYES: PERRL, extraocular movements intact, sclera anicteric, conjunctiva clear. ENT: Oropharynx clear, without erythema or exudates. Moist mucous membranes. NECK: Trachea midline, full range of motion. Supple without lymphadenopathy. LUNGS: Breath sounds equal, clear to auscultation bilaterally, no wheezes, no crackles. No accessory muscle use. HEART: Regular rate and rhythm, S1, S2 without murmur, rub or gallop. ABDOMEN: Soft, nondistended, nontender to light and deep palpation x4 quadrants , no rebound tenderness, no guarding. Normoactive bowel sounds x4 quadrants. no hepatosplenomegaly, no masses. EXTREMITIES: 2+ radial, dorsalis pedis pulses bilaterally. Warm, well-perfused. No lower extremity edema bilaterally. NEUROLOGICAL: Cranial nerves II through XII grossly intact. Normal speech. No gross focal deficits. PSYCH: Normal mood, normal affect upon my encounter. SKIN: Warm, dry. LABS Laboratory Results - last 24 hr 06/17/18 06/18/18 06/18/18 22:07 05:30 05:30 WBC 5.6 RBC 4.73 Hgb 12.9 Hct 38.6 MCV 81.5 MCH 27.3 MCHC 33.4 RDW 14.0 Plt Count 252 MPV 7.9 Absolute Neuts (auto) 1.7 Neutrophils % 30.7 L D Lymphocytes % 52.7 H Monocytes % 12.9 H Eosinophils % 2.7 Basophils % 1.0 Nucleated RBC % 0 Sodium 136 Potassium 3.8 Chloride 98 Carbon Dioxide 30 Anion Gap 8 BUN 11 Creatinine 0.9 Creat Clearance w eGFR 59.37 POC Glucometer 197 Random Glucose 166 H Calcium 9.7 Phosphorus 3.9 Magnesium 1.9 Total Bilirubin 1.1 H AST 17 ALT 23 Alkaline Phosphatase 98 Total Protein 7.8 Albumin 3.4 06/18/18 06/18/18 05:44 11:59 WBC RBC Hgb Hct MCV MCH MCHC RDW Plt Count MPV Absolute Neuts (auto) Neutrophils % Lymphocytes % Monocytes % Eosinophils % Basophils % Nucleated RBC % Sodium Potassium Chloride Carbon Dioxide Anion Gap BUN Creatinine Creat Clearance w eGFR POC Glucometer 168 198 Random Glucose Calcium Phosphorus Magnesium Total Bilirubin AST ALT Alkaline Phosphatase Total Protein Albumin HOSPITAL COURSE: Date of Admission:06/15/18 Date of Discharge: 06/18/18 Patient is an 88 year old female with history of hypertension, diabetes mellitus , who presented with complaint of atypical chest pain. Chest radiograph showed no acute infiltrates. Troponin 0.02 x2. Patient was evaluated by cardiology. Cardiac ECHO showed grossly normal LV size, thickness, and function. Grade 1 diastolic dysfunction noted. Patient had grossly negative cardiac stress test, as discussed with cardiology. Patient discharged home with aspirin 81mg daily. Discharged to follow up with primary care physician ([facility] referral provided), and data migration lead. Minutes to complete discharge: 31 Discharge Summary Reason For Visit: CHEST PAIN Current Active Problems Chest pain (Acute) Condition: Stable - Instructions Diet, Activity, Other Instructions: You were admitted to the hospital with chest pain. You were evaluated by the data migration lead, and had an echocardiogram which showed normal size and function of your heart, with slight impaired relaxation. Further you had a stress test performed which was grossly normal. You are being discharged home. Continue taking your home medications as directed. You will begin taking a baby Aspirin 81mg daily. Discuss this new medication with your primary care physician. Follow up with your primary care physician within two- three days after discharge. A referral to [facility] Eliud rosales has been provided. Follow up with your data migration lead within one week of discharge. A referral to Dr. Singh has been provided. Return to the nearest Emergency Department if you experience any worsening symptoms, subjective fevers, chills, shortness of breath, chest pain, palpitations, abdominal pain, nausea, vomiting. Referrals: [facility] [place] [Provider Group] Denzel Singh MD [Staff Physician] - Disposition: HOME - Home Medications Comprehensive Discharge Medication List: Ambulatory Orders Hydrochlorothiazide [Hctz -] 25 mg PO DAILY 06/16/18 Losartan Potassium [Cozaar -] 25 mg PO DAILY 06/16/18 Metformin HCl [Glucophage] 1,000 mg PO BID 06/16/18 Meloxicam 7.5 mg DAILY 06/18/18 This patient is new to me today: No Emergency Visit: Yes ED Registration Date: 06/15/18 Care time: The patient presented to the Emergency Department on the above date and was hospitalized for further evaluation of their emergent condition. Critical Care patient: No - Discharge Referral Referred to [facility] No
== END 2018-06-18 18:32 | disposition home or self-care (01) ==
LOC: JER 21:13 → JERBED 22:32 → J4W 06-16 03:08
PROVIDERS: ADMIT Internal Medicine; ATTEND Internal Medicine
PROC: 3E033GC Introduction of Other Therapeutic Substance into Peripheral Vein, Percutaneous Approach (ICD-10-PCS; principal; 2018-06-15)
PROC: 3E0337Z Introduction of Electrolytic and Water Balance Substance into Peripheral Vein, Percutaneous Approach (ICD-10-PCS; 2018-06-15)
PROC: 3E013VG Introduction of Insulin into Subcutaneous Tissue, Percutaneous Approach (ICD-10-PCS; 2018-06-15)
PROC: 3E013GC Introduction of Other Therapeutic Substance into Subcutaneous Tissue, Percutaneous Approach (ICD-10-PCS; 2018-06-15)
DX: R07.89 Other chest pain (principal); I10 Essential (primary) hypertension; E11.9 Type 2 diabetes mellitus without complications; R00.2 Palpitations; R53.83 Other fatigue; E66.9 Obesity, unspecified; Z68.36 Body mass index [BMI] 36.0-36.9, adult; I45.10 Unspecified right bundle-branch block; Z79.84 Long term (current) use of oral hypoglycemic drugs
CPT/HCPCS: 36415; 71045-TC-FY; 78452-TC; 80053; 80061; 82550; 82962; 83036; 83721; 83735; 83880; 84100; 84443; 84484; 85025; 85027; 85379; 85610; 87804; 93005; 93010; 93017; 93306-TC; 96372; 96374; 97116-GP; 97161-GP; 99283-25; A9502; G0378; J1644; J2785